=== PATIENT | female | born 2000 | race Hispanic/Latino ===

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

== ENCOUNTER 2023-09-27 07:08 | Emergency (ER) | payer OTHER ==
[2023-09-27] MEDS ORDERED: Famotidine 20 MG TAB ONE (07:44)
[2023-09-27] MEDS ORDERED: Ondansetron ODT 4 MG TAB ONE (07:45)
== END 2023-09-27 09:21 | disposition home or self-care (01) ==
LOC: ERS 07:08
DX: R11.2 Nausea with vomiting, unspecified (principal); R19.7 Diarrhea, unspecified
CPT/HCPCS: 99283; Q0162

== ENCOUNTER 2024-04-01 19:41 | Emergency (ER) | payer OTHER, SELFPAY ==
[2024-04-01] MEDS ORDERED: Ketorolac Tromethamine 30 MG (1 mL) VIAL ONE (21:02)
[2024-04-01] MEDS ORDERED: HYDROcodone/Acetaminophen 10/325 mg Tablet ONE (21:02)
== END 2024-04-01 22:52 | disposition home or self-care (01) ==
LOC: ERS 19:41
DX: S00.531A Contusion of lip, initial encounter (principal); S00.83XA Contusion of other part of head, initial encounter; S16.1XXA Strain of muscle, fascia and tendon at neck level, initial encounter; V00.141A Fall from scooter (nonmotorized), initial encounter
CPT/HCPCS: 70450; 70486; 72125; 96372; J1885

== ENCOUNTER 2024-05-28 08:22 | Emergency (ER) | payer SELFPAY ==
[2024-05-28] MEDS ORDERED: Dexamethasone 10 MG/ML VIAL ONE (08:57)
[2024-05-28] MEDS ORDERED: Acetaminophen 500 MG TAB ONE (08:57)
[2024-05-28 09:48] LABS: Influenza A by NAA Not Detected (NotDetected); Influenza B by NAA Not Detected (NotDetected); SARS-CoV-2 NAA Rapid Test Not Detected (NotDetected)
== END 2024-05-28 10:33 | disposition home or self-care (01) ==
LOC: ERS 08:22
DX: J06.9 Acute upper respiratory infection, unspecified (principal); F17.290 Nicotine dependence, other tobacco product, uncomplicated
CPT/HCPCS: 71046; 87081; 87430; J1100

== ENCOUNTER 2024-11-04 12:59 | Emergency (ER) | payer SELFPAY ==
[2024-11-04] MEDS ORDERED: Dexamethasone 10 MG/ML VIAL ONE (13:49)
[2024-11-04] MEDS ORDERED: Ibuprofen 800 MG TAB ONE (13:50)
[2024-11-04] MEDS ORDERED: Pseudoephedrine HCl 30 MG TAB PO SCH (14:00)
== END 2024-11-04 14:18 | disposition home or self-care (01) ==
LOC: ERS 12:59
DX: B34.9 Viral infection, unspecified (principal); H65.93 Unspecified nonsuppurative otitis media, bilateral
CPT/HCPCS: 71046; 87081; 87430; J1100

== ENCOUNTER → 2025-10-11 | Emergency (ER) | payer SELFPAY | LOC: ERS 12:11 | DX: Z53.21 Procedure and treatment not carried out due to patient leaving prior to being seen by health care provider (principal) | CPT/HCPCS: 87081; 87430 ==